=== PATIENT | female | born 2000 | race African-American/Black ===

== ENCOUNTER 2020-04-25 05:20 | Inpatient (IN) | payer MEDICAID ==
[~2020-04-25] VITALS: Ht 149.9 cm; Wt 76.2 kg
[2020-04-25] MEDS ORDERED: DEXT 5%/LR + PITOCIN 20UNITS/L 1,000 ML IV SCH (05:57)
[2020-04-25] MEDS ORDERED: NALOXONE HCL 0.4 MG/ML 1ML VIAL IM PRN (06:00)
[2020-04-25] MEDS ORDERED: PENICILLIN G POTASSIUM 5 MMU in DEXT 5% WATER 100 ML IV SCH (06:00)
[2020-04-25] MEDS ORDERED: LIDOCAINE HCL 1% 20ML VIAL (Pyxis) INJ INFIL SCH (06:00)
[2020-04-25] MEDS ORDERED: RHO(D) IMMUNE GLOBULIN 300 MCG/SYR IM SCH (06:00)
[2020-04-25] MEDS: LACTATED RINGERS 1,000 ML IV SCH ×3 (06:28→18:12)
[2020-04-25 07:09] LABS: BASOPHILS % 0.5 % (0.0-2.0); EOSINOPHILS % 0.6 % (0.0-5.0); HEMATOCRIT. 31.6 % (36.0-48.0); HEMOGLOBIN. 10.2 g/dL (12.0-16.0); LYMPHOCYTES % 21.2 % (20.0-50.0); MEAN CORPUSCULAR HEMOGLOBIN 25.8 pg (28.0-32.0); MEAN PLATELET VOLUME 10.9 fl (7.4-10.4); MONOCYTES % 8.2 % (2.0-8.0); NEUTROPHILS % 69.5 % (40.0-76.0); PLATELET 158 x1000/uL (130-400); RED BLOOD CELL COUNT 3.96 mill/uL (4.2-5.4); RED CELL DISTRIBUTION WIDTH 14.9 % (11.6-14.6)
[2020-04-25 07:13] LABS: CLARITY URINE CLOUDY (CLEAR); COLOR URINE YELLOW (YELLOW); KETONES URINE NEGATIVE (NEGATIVE); LEUKOCYTE ESTERASE URINE 1+ (NEGATIVE); NITRITE URINE NEGATIVE (NEGATIVE); OCCULT BLOOD URINE NEGATIVE (NEGATIVE); PH URINE 6.5 (4.5-8.0); PROTEIN URINE 1+ (NEGATIVE); SPECIFIC GRAVITY URINE 1.018 (1.005-1.030); UROBILINOGEN URINE 0.2 E.U./dL (0.2-1.0)
[2020-04-25] MEDS ORDERED: PREN-176 PO (07:40)
[2020-04-25 08:10] LABS: INR 0.9; PARTIAL THROMBOPLASTIN TIME 24.7 sec (23.4-31.0); PROTHROMBIN TIME 9.8 sec (9.6-11.0)
[2020-04-25 08:38] LABS: *AMPHETAMINES SCREEN URINE NEGATIVE (NEGATIVE); *BARBITURATES SCREEN URINE NEGATIVE (NEGATIVE); *BENZODIAZEPINES SCREEN URINE NEGATIVE (NEGATIVE); *COCAINE SCREEN URINE NEGATIVE (NEGATIVE); CANNABINOID URINE SCREEN NEGATIVE (NEGATIVE); METHADONE URINE SCREEN NEGATIVE (NEGATIVE); OPIATES URINE SCREEN NEGATIVE (NEGATIVE); PHENCYCLIDINE URINE SCREEN NEGATIVE (NEGATIVE)
[2020-04-25] MEDS ORDERED: MISOPROSTOL 100MCG TABLET PO SCH (09:30)
[2020-04-25 11:54] LABS: HEPATITIS B SURFACE ANTIGEN NEGATIVE
[2020-04-25] MEDS: PENICILLIN G POTASSIUM 2.5 MMU in DEXTROSE 5% WATER 50 ML IV SCH ×3 (12:26→21:38)
[2020-04-25] MEDS ORDERED: BUTORPHANOL TARTRATE 2 MG/ML VIAL IV PRN (17:00)
[2020-04-25] MEDS ORDERED: DIPHENHYDRAMINE 50MG/ML VIAL IV PRN (19:15)
[2020-04-25] MEDS ORDERED: METOCLOPRAMIDE HCL 10MG/2ML VIAL IV PRN (19:15)
[2020-04-25] MEDS ORDERED: ONDANSETRON HCL 4MG/2ML INJ IV PRN (19:15)
[2020-04-25] MEDS ORDERED: ROPIVACAINE HCL/PF EPIDURAL 200 ML EPI SCH (19:15)
[2020-04-26] MEDS: PENICILLIN G POTASSIUM 2.5 MMU in DEXTROSE 5% WATER 50 ML IV SCH ×3 (01:25→10:11)
[2020-04-26] MEDS: LACTATED RINGERS 1,000 ML IV SCH ×3 (01:27→07:39)
[2020-04-26 13:45] VITALS: BP 124/63
[2020-04-26] MEDS ORDERED: DEXT 5%/LR + PITOCIN 20UNITS/L 1,000 ML IV SCH (13:47)
[2020-04-26] MEDS ORDERED: LANOLIN OINT 7GM TUBE TOP PRN (14:00)
[2020-04-26] MEDS ORDERED: GLYCERIN/WITCH HAZEL LEAF MEDICATED PAD TOP PRN (14:00)
[2020-04-26] MEDS ORDERED: ACETAMINOPHEN WITH CODEINE 300/30MG TABLET PO PRN (14:00)
[2020-04-26] MEDS ORDERED: BISACODYL 10MG SUPP PR PRN (14:00)
[2020-04-26] MEDS ORDERED: BENZOCAINE/LANOLIN/ALOE VERA SPRAY TOP PRN (14:00)
[2020-04-26] MEDS ORDERED: IBUPROFEN 400MG TABLET PO PRN (14:00)
[2020-04-26] MEDS ORDERED: DIPHENHYDRAMINE 25MG CAPSULE PO PRN (14:00)
[2020-04-26] MEDS ORDERED: HEMORRHOIDAL SUPP PR PRN (14:00)
[2020-04-26] MEDS: ACETAMINOPHEN WITH CODEINE 300/30MG TABLET PO PRN (14:25)
[2020-04-26 14:45] VITALS: BP 101/49
[2020-04-26 15:05] LABS: HEMATOCRIT. 25.5 % (36.0-48.0); HEMOGLOBIN. 8.1 g/dL (12.0-16.0); MEAN CORPUSCULAR HEMOGLOBIN 25.3 pg (28.0-32.0); MEAN CORPUSCULAR VOLUME 79.9 fL (81.0-99.0); PLATELET 139 x1000/uL (130-400); RED BLOOD CELL COUNT 3.19 mill/uL (4.2-5.4); RED CELL DISTRIBUTION WIDTH 15.5 % (11.6-14.6)
[2020-04-26 16:01] LABS: PLATELET ESTIMATE NORMAL
[2020-04-26] MEDS: SIMETHICONE 80MG TABLET CHEW PO SCH ×3 (16:56→21:02)
[2020-04-26] MEDS: DOCUSATE SODIUM 100MG CAPSULE PO SCH (21:01)
[2020-04-26 22:00] VITALS: BP 105/61
[2020-04-27 05:00] VITALS: BP 102/60
[2020-04-27 06:25] LABS: BASOPHILS % 0.1 % (0.0-2.0); EOSINOPHILS % 0.2 % (0.0-5.0); HEMATOCRIT. 24.5 % (36.0-48.0); HEMOGLOBIN. 7.9 g/dL (12.0-16.0); LYMPHOCYTES % 9.3 % (20.0-50.0); MEAN CORPUSCULAR HEMOGLOBIN 25.6 pg (28.0-32.0); MEAN PLATELET VOLUME 10.2 fl (7.4-10.4); MONOCYTES % 7.6 % (2.0-8.0); NEUTROPHILS % 82.8 % (40.0-76.0); PLATELET 163 x1000/uL (130-400); RED CELL DISTRIBUTION WIDTH 14.8 % (11.6-14.6)
[2020-04-27 08:00] VITALS: BP 122/70
[2020-04-27] MEDS: FERROUS SULFATE 325MG TABLET PO SCH ×3 (08:40→17:43)
[2020-04-27] MEDS: PRENATAL VIT/FE FUMARATE/FA TABLET PO SCH (08:40)
[2020-04-27] MEDS: SIMETHICONE 80MG TABLET CHEW PO SCH ×4 (08:40→21:28)
[2020-04-27 16:30] VITALS: BP 102/55
[2020-04-27 19:30] VITALS: BP 122/77
[2020-04-27] MEDS: DOCUSATE SODIUM 100MG CAPSULE PO SCH (21:28)
[2020-04-27] MEDS: ACETAMINOPHEN WITH CODEINE 300/30MG TABLET PO PRN (22:46)
[2020-04-28 04:00] VITALS: BP 105/58
[2020-04-28 06:37] LABS: BASOPHILS % 0.1 % (0.0-2.0); EOSINOPHILS % 1.3 % (0.0-5.0); HEMATOCRIT. 22.8 % (36.0-48.0); HEMOGLOBIN. 7.6 g/dL (12.0-16.0); LYMPHOCYTES % 16.6 % (20.0-50.0); MEAN CORPUSCULAR VOLUME 81.3 fL (81.0-99.0); MEAN PLATELET VOLUME 9.3 fl (7.4-10.4); PLATELET 164 x1000/uL (130-400); RED CELL DISTRIBUTION WIDTH 15.2 % (11.6-14.6)
[2020-04-28] MEDS: FERROUS SULFATE 325MG TABLET PO SCH (07:30)
[2020-04-28 08:00] VITALS: BP 114/75
[2020-04-28] MEDS: SIMETHICONE 80MG TABLET CHEW PO SCH (08:00)
[2020-04-28] MEDS: PRENATAL VIT/FE FUMARATE/FA TABLET PO SCH (08:59)
== END 2020-04-28 12:00 | disposition home or self-care (01) | DRG 560 ==
LOC: OBSVTOIN 05:20 → 8 EST LDRP 05:20 → 8EST 04-26 13:30
PROVIDERS: ADMIT Obstetrics & Gynecology; ATTEND Obstetrics & Gynecology
PROC: 0KQM0ZZ Repair Perineum Muscle, Open Approach (ICD-10-PCS; principal; 2020-04-25)
PROC: 10D07Z6 Extraction of Products of Conception, Vacuum, Via Natural or Artificial Opening (ICD-10-PCS; 2020-04-25)
PROC: 3E0R3BZ Introduction of Anesthetic Agent into Spinal Canal, Percutaneous Approach (ICD-10-PCS; 2020-04-25)
PROC: 00HU33Z Insertion of Infusion Device into Spinal Canal, Percutaneous Approach (ICD-10-PCS; 2020-04-25)
DX: O70.1 Second degree perineal laceration during delivery (principal); O69.81X0 Labor and delivery complicated by cord around neck, without compression, not applicable or unspecified; Z37.0 Single live birth; Z3A.39 39 weeks gestation of pregnancy
CPT/HCPCS: 36415; 76805; 76818; 80305; 81003; 85025; 86592; 86703; 86762; 86850; 86900; 87340; 99281; G0378; J0595; J2540; J2590; J2795; J7060; J7120

== ENCOUNTER 2022-04-02 22:31 | Emergency (ER) | payer MEDICAID ==
[~2022-04-02] VITALS: Ht 149.9 cm; Wt 60.0 kg
[2022-04-03] MEDS ORDERED: KETOROLAC 30MG/ML VIAL IM ONE
[2022-04-03] MEDS ORDERED: AM250 PO (00:40)
[2022-04-03] MEDS ORDERED: T3 PO (00:40)
[2022-04-03] MEDS ORDERED: IBUP-2029 MT (00:40)
[2022-04-03] MEDS ORDERED: ACETAMINOPHEN WITH CODEINE 300/30MG TABLET PO ONE (00:45)
[2022-04-03 00:50] VITALS: BP 125/67
== END 2022-04-03 00:52 | disposition home or self-care (01) ==
LOC: ER 22:31
DX: K08.89 Other specified disorders of teeth and supporting structures (principal); F41.9 Anxiety disorder, unspecified; Z98.890 Other specified postprocedural states
CPT/HCPCS: 81025; 96372; 99283; J1885

== ENCOUNTER 2023-03-03 23:15 | Emergency (ER) | payer MEDICAID ==
[~2023-03-03] VITALS: Ht 149.9 cm; Wt 64.5 kg
[~2023-03-03 23:15] MED LIST: AM250 PO; IBUP-2029 MT; T3 PO
[2023-03-04 00:11] VITALS: BP 109/70; PULSE 114; TEMP 98.7; O2SAT 100
== END 2023-03-04 02:16 | disposition left against medical advice (07) ==
LOC: ER 23:15
DX: Z53.21 Procedure and treatment not carried out due to patient leaving prior to being seen by health care provider (principal)
CPT/HCPCS: 99281